=== PATIENT | male | born 1995 | race Caucasian/White ===

== ENCOUNTER → 2017-04-04 | Outpatient (CLI) | payer OTHER, BC ==
--- NOTE | 2017-04-04 14:56 | RAD ---
Scrotal ultrasound, 04/04/2017: History: Intermittent left testicular pain The right testicle measures 4.6 x 3.3 x 2.3 cm while the left testicle measures 3.3 x 3.5 x 2.2 cm. No testicular mass is seen. There is symmetric blood flow in both testicles. No epididymal abnormality is seen. There is a small left varicocele. There is a small right hydrocele. IMPRESSION: 1. No testicular abnormality is detected. 2. Small left varicocele. 3. Small right hydrocele
== END | disposition home or self-care (01) ==
LOC: US 09:43
PROVIDERS: ATTEND Physician Assistant
DX: N43.3 Hydrocele, unspecified (principal); I86.1 Scrotal varices
CPT/HCPCS: 76870

== ENCOUNTER → 2019-08-22 | Outpatient (CLI) | payer BC ==
--- NOTE | 2019-08-22 13:08 | RAD ---
EXAM: Abdomen, 2 views. HISTORY: Pain. COMPARISON: None. FINDINGS: 2 views of the abdomen are obtained. There is gas and stool within the colon. No abnormally dilated loop of bowel is seen. There is mild scoliosis. There is a transitional lumbosacral segment, a normal variant. There is decreased femoral head-neck offset, suggesting chronic bilateral hip impingement. IMPRESSION: Nonobstructive bowel gas pattern. Electronically signed by: Jasmina Mccoy MD (08/22/2019 1:05 PM) [id number]
== END | disposition home or self-care (01) ==
LOC: PMG 12:13
PROVIDERS: ATTEND Physician Assistant
DX: R10.11 Right upper quadrant pain (principal)
CPT/HCPCS: 74019